=== PATIENT | female | born 1990 | race Caucasian/White ===

== ENCOUNTER 2017-05-06 22:20 | Emergency (ER) | payer OTHER ==
[2017-05-06] MEDS ORDERED: FAMOTIDINE 20 MG/2 ML VIAL IV STA (22:35)
[2017-05-06] MEDS ORDERED: diphenhydrAMINE 50 MG/ML 1 ML VIAL IVP STA (22:35)
[2017-05-06] MEDS ORDERED: methylPREDNISolone SOD SUCCI 125 MG/2 ML VIAL IV STA (22:35)
--- NOTE | 2017-05-06 22:39 | ED ---
Allergic Reaction HPI - General Chief complaint: Allergic Reaction Stated complaint: poss allergic reaction Time Seen by Provider: 05/06/17 22:31 Source: patient, RN notes reviewed Mode of arrival: ambulatory Limitations: no limitations - History of Present Illness Initial Comments: 26-year-old female presents emergency Department with chief complaint of possible ALLERGIC reaction. Patient states started with hives and itchiness over the last few hours. States that she took 125 mg of Benadryl tonight if hours ago with no relief. Patient states symptoms are getting worse. She denies any difficulty swallowing, breathing. She states the only thing new that she had today is she took some [id number] store menstrual cramp relief medication. She states she's never taken this in the past. She states she seems soaps, lotions, detergents and all other home products. Patient states the rash started on her extremities have spread to her chest and back region. - Related Data Home Medications Medication Instructions Recorded Confirmed diphenhydrAMINE HCL [Benadryl] 25 mg PO ONCE PRN 05/06/17 05/06/17 Allergies Allergy/AdvReac Type Severity Reaction Status Date / Time No Known Allergies Allergy Verified 05/06/17 22:30 Review of Systems ROS Statement: Those systems with pertinent positive or pertinent negative responses have been documented in the HPI. ROS Other: All systems not noted in ROS Statement are negative. Past Medical History Past Medical History: No Reported History Additional Past Medical History / Comment(s): GALLBLADDER DISORDER History of Any Multi-Drug Resistant Organisms: None Reported Past Surgical History: Adenoidectomy, Cholecystectomy, Tonsillectomy Past Anesthesia/Blood Transfusion Reactions: No Reported Reaction Additional Past Anesthesia/Blood Transfusion Reaction / Comment(s): NO PRIOR SURGICAL HX Past Psychological History: No Psychological Hx Reported Smoking Status: Never smoker Past Alcohol Use History: None Reported Past Drug Use History: None Reported - Past Family History Mother Family Medical History: No Reported History General Exam Limitations: no limitations General appearance: alert, in no apparent distress Head exam: Present: atraumatic, normocephalic, normal inspection Eye exam: Present: normal appearance, PERRL, EOMI. Absent: scleral icterus, conjunctival injection, periorbital swelling ENT exam: Present: normal exam, normal oropharynx, mucous membranes moist, TM's normal bilaterally, normal external ear exam Neck exam: Present: normal inspection, full ROM. Absent: tenderness, meningismus, lymphadenopathy Respiratory exam: Present: normal lung sounds bilaterally. Absent: respiratory distress, wheezes, rales, rhonchi, stridor Cardiovascular Exam: Present: regular rate, normal rhythm, normal heart sounds. Absent: systolic murmur, diastolic murmur, rubs, gallop, clicks Skin exam: Present: warm, dry, urticaria (Noted of the upper extremities chest and back region) Course Vital Signs 05/06/17 22:23 Temperature 98.2 F Pulse Rate 105 H Respiratory 20 Rate Blood Pressure 149/79 O2 Sat by Pulse 99 Oximetry Medical Decision Making - Medical Decision Making 26-year-old female presented for rash, urticaria. Patient's symptoms are completely resolved. Patient will be discharged on Benadryl she is advised to follow up for ALLERGY testing return parameters were discussed. Disposition Clinical Impression: Urticaria Disposition: HOME SELF-CARE Condition: Stable Instructions: Urticaria (ED) Additional Instructions: Continue Benadryl 50 mg every 6 hours for minimal of 24 hours.Please return to the Emergency Department if symptoms worsen or any other concerns. Referrals: Addis Rosado MD [Primary Care Provider] - 1-2 days Time of Disposition: 23:52
[2017-05-07 00:26] VITALS: BP 135/78; PULSE 82; RESP 18; TEMP 97.9
== END 2017-05-07 00:26 | disposition home or self-care (01) ==
LOC: EC 22:20
DX: L50.9 Urticaria, unspecified (principal)
CPT/HCPCS: 99283; 96374; 96375 ×2; J1200; J2930

== ENCOUNTER 2019-02-04 00:32 | Emergency (ER) | payer BC, OTHER ==
[2019-02-04 01:01] VITALS: RESP 18
--- NOTE | 2019-02-04 02:07 | ED ---
General Adult HPI - General Chief complaint: ENT Stated complaint: Lt ear problem, rt eye swelling Time Seen by Provider: 02/04/19 01:25 Source: patient, family, RN notes reviewed, old records reviewed Mode of arrival: ambulatory Limitations: no limitations - History of Present Illness Initial comments: 28-year-old female patient with no pertinent past medical history presents to ED with 2 complaints. Patient prior complaint of left otalgia ongoing for approximately 2 days. Patient secondary complaint conjunctivits of right eye which began today. Patient does complain of some purulent drainage and lash matting. Patient denies any other complaints this time. Denies any chest pain, sob, abdominal pain, nausea vomiting or diarrhea. Patient states that she is not . Systemic: Pt denies fatigue, myalgia, fever/chills, rash. Pt denies weakness, night sweats, weight loss. Neuro: Pt denies headache, visual disturbances, syncope or pre-syncope. HEENT: Pt denies rhinorrhea, pharyngitis or notable lymphadenopathy. Cardiopulmonary: Pt denies chest pain, SOB, heart palpitations, dyspnea on exertion. Abdominal/GI: Pt denies abdominal pain, n/v/d. : Pt denies dysuria, burning w/ urination, frequency/urgency. Denies new onset urinary or bowel incontinence. MSK: Pt denies myalgia, loss of strength or function in extremities. Neuro: Pt denies new onset weakness, paresthesias. - Related Data Home Medications Medication Instructions Recorded Confirmed diphenhydrAMINE HCL [Benadryl] 25 mg PO ONCE PRN 05/06/17 05/06/17 Previous Rx's Medication Instructions Recorded Amoxicillin/Potassium Clav 1 each PO Q12HR #20 tab 02/04/19 [Augmentin 875-125 Tablet] Erythromycin Ophth Oint [Romycin 1 applic RIGHT EYE QID 7 Days #1 02/04/19 Ophth Oint] tube Allergies Allergy/AdvReac Type Severity Reaction Status Date / Time No Known Allergies Allergy Verified 02/04/19 01:01 Review of Systems ROS Statement: Those systems with pertinent positive or pertinent negative responses have been documented in the HPI. ROS Other: All systems not noted in ROS Statement are negative. Past Medical History Past Medical History: No Reported History Additional Past Medical History / Comment(s): GALLBLADDER DISORDER History of Any Multi-Drug Resistant Organisms: None Reported Past Surgical History: Adenoidectomy, Cholecystectomy, Tonsillectomy Past Anesthesia/Blood Transfusion Reactions: No Reported Reaction Additional Past Anesthesia/Blood Transfusion Reaction / Comment(s): NO PRIOR SURGICAL HX Past Psychological History: No Psychological Hx Reported Smoking Status: Never smoker Past Alcohol Use History: None Reported Past Drug Use History: None Reported - Past Family History Mother Family Medical History: No Reported History General Exam - General Exam Comments Initial Comments: Constitutional: NAD, AOX3, Pt has pleasant affect. HEENT: NC/AT, trachea midline, neck supple, no lymphadenopathy. Posterior pharynx non erythematous, without exudates. External ears appear normal, without discharge. Left TM erythematous, no bulging perforation. Right TM pale abdullahi, no bulging perforation. Mucous membranes moist. Eyes PERRLA, EOM intact. There is no scleral icterus. No pallor noted. Purulent drainage noted of right eye, no injection. Cardiopulmonary: RRR, no murmurs, rubs or gallops, no JVD noted. Lungs CTAB in anterior and posterior woodard. No peripheral edema. Abdominal exam: Abdomen soft and non-distended. Abdomen non-tender to palpation in all 4 quadrants. Bowel sounds active in LLQ. No hepatosplenomegaly. No ecchymosis Neuro: CN II-XII grossly intact. No nuchal rigidity. MSK: No posterior calf tenderness bilaterally, homans sign negative bilaterally. Posterior tibialis and radial pulse +2 bilaterally. Sensation intact in upper and lower extremities. Full active ROM in upper and lower extremities, 5/5 stregnth. Limitations: no limitations Course Vital Signs 02/04/19 00:57 Temperature 98.4 F Pulse Rate 90 Respiratory 18 Rate Blood Pressure 127/82 O2 Sat by Pulse 97 Oximetry Medical Decision Making - Medical Decision Making 28-year-old female patient with no pertinent past medical history presents to ED with 2 complaints. Patient prior complaint of left otalgia ongoing for approximately 2 days. Patient secondary complaint conjunctivits of right eye which began today. Patient does complain of some purulent drainage and lash m atting. Patient denies any other complaints this time. Denies any chest pain, sob, abdominal pain, nausea vomiting or diarrhea. Patient states that she is not . Pt VSS, afebrile. Physical exam displayed: Left TM erythematous, no bulging perforation. Right TM pale abdullahi, no bulging perforation. Mucous membranes moist. Eyes PERRLA, EOM intact. There is no scleral icterus. No pallor noted. Purulent drainage noted of right eye, no injection. Patient will be discharged with erythromycin ophthalmic ointment, amoxicillin. Patient to follow up with primary care prior 1-2 days. Patient returned here condition worsens. Case discussed with Dr. Helton. Disposition Clinical Impression: Otitis media, Conjunctivitis of right eye Disposition: HOME SELF-CARE Condition: Stable Instructions (If sedation given, give patient instructions): Ear Infection (E D), Conjunctivitis (ED) Additional Instructions: Patient to adhere to previously discussed treatment plan and will take medication(s) as directed. Patient to follow up with PCP in 1-2 days. Patient to return to ED if symptoms do not improve. Take medications as directed. Follow up with primary care provider tomorrow. Return to ER if condition worsens. Prescriptions: Amoxicillin/Potassium Clav [Augmentin 875-125 Tablet] 1 each PO Q12HR #20 tab Erythromycin Ophth Oint [Romycin Ophth Oint] 1 applic RIGHT EYE QID 7 Days #1 tube Is patient prescribed a controlled substance at d/c from ED?: No Referrals: Addis Rosado MD [Primary Care Provider] - 1-2 days
[2019-02-04 02:13] VITALS: BP 132/78; PULSE 87; TEMP 98
--- NOTE | 2019-02-04 03:13 | ED ---
Medical Decision Making - Medical Decision Making pt is not a contact lens user Disposition Clinical Impression: Otitis media, Conjunctivitis of right eye Disposition: HOME SELF-CARE Condition: Stable Instructions (If sedation given, give patient instructions): Ear Infection (ED), Conjunctivitis (ED) Additional Instructions: Patient to adhere to previously discussed treatment plan and will take medication(s) as directed. Patient to follow up with PCP in 1-2 days. Patient to return to ED if symptoms do not improve. Take medications as directed. Follow up with primary care provider tomorrow. Return to ER if condition worsens. Prescriptions: Amoxicillin/Potassium Clav [Augmentin 875-125 Tablet] 1 each PO Q12HR #20 tab Erythromycin Ophth Oint [Romycin Ophth Oint] 1 applic RIGHT EYE QID 7 Days #1 tube Is patient prescribed a controlled substance at d/c from ED?: No Referrals: Addis Rosado MD [Primary Care Provider] - 1-2 days
== END 2019-02-04 02:13 | disposition home or self-care (01) ==
LOC: EC 00:32
DX: H10.9 Unspecified conjunctivitis (principal); H66.92 Otitis media, unspecified, left ear
CPT/HCPCS: 99283